=== PATIENT | male | born 1955 | race Caucasian/White ===

== ENCOUNTER 2025-03-12 09:47 | Outpatient (CLI) | payer MEDICARE, OTHER, SELFPAY ==
--- NOTE | 2025-03-12 10:01 | ECG_ITS ---
Test Date: 2025-03-12 10:17:12 Measurements Intervals [place] Rate: 58 P: 32 HI: 133 QRS: 15 QRSD: 110 T: 24 QT: 404 QTc: 398 Interpretive Statements SINUS BRADYCARDIA DELAYED PRECORDIAL R/S TRANSITION LEFT VENTRICULAR HYPERTROPHY BASELINE ARTIFACT- I, II, III, AVR, AVL ABNORMAL ECG CONSIDER INFERIOR INFARCT, AGE INDETERMINATE No previous ECG available for comparison Electronically Signed On 03-12-2025 10:43:38 WADER BOOT TOP ASSEMBLER by Andrew Bashir D.O.
[2025-03-12 10:26] LABS: Hematocrit 41.6 % (42.0-52.0); Hemoglobin 14.7 g/dL (14.0-18.0)
[2025-03-12 10:33] LABS: Add Urine Microscopic? YES; Appearance Urine Clear (Clear); Glucose Urine UA Negative (Negative); Leukocyte Esterase Ur Negative LEU/UL (Negative); Nitrate Urine Negative (Negative); Non Pathogenic Casts 0-2; Specific Grav Ur 1.020 (1.001-1.035)
[2025-03-12 10:38] LABS: INR 1.0; Prothrombin Time 13.6 Seconds (11.1-14.7)
[2025-03-12 10:39] LABS: Partial Thromboplastin Time 31.0 Seconds (22.3-36.8)
--- OUTSIDE RECORDS SUMMARY | 2025-03-12 10:47 | XMS_ITS | Clinical Summary ---
Author Organization [facility] Address [address] [place] [address] Care Team Providers Care Agency Cashier Name Role Phone Lindsay Guajardo MD Primary Care Provider [phone] Allergies Active Allergy Reactions Criticality Noted Date Comments Amoxicillin Cephalexin Hydrocodone Swollen tongue,Nausea only,Rash Reaction: Tongue swelling, nausea, rash, Hydrocodone-Acetaminoph en Penicillins Unknown 05/18/2016 Medications aspirin (ASPIRIN LOW DOSE) 81 mg tablet 81 mg. 0 2 Active multivitamin tablet tablet 0 2 Active simvastatin (ZOCOR) 20 mg tablet TAKE 1 TABLET DAILY 90 tablet 3 8 Active acetaminophen (TYLENOL) 500 mg tablet Active fluocinolone (DERMA-SMOOTH/FS ) 0.01 % oil APPLY TO SCALP AND LEAVE ON OVERNIGHT. RINSE IF DESIRED. FOR FIRST TIME, USE IN AM. 7 Active loratadine (CLARITIN) 10 mg tablet Active diphenhydrAMINE (BENADRYL) 50 mg capsule Active mupirocin (BACTROBAN) 2 % creamIndications :Abscess Apply topically 2 (two) times a day. 30 g 3 8 Active clobetasoL (TEMOVATE) 0.05 % ointmentIndicati ons:Cutaneous T-cell lymphoma, unspecified body region (HCC) APPLY TOPICALLY TO AFFECTED AREAS ON BODY TWO TIMES DAILY NEEDED 45 g 11 0 Active metoprolol XL (TOPROL-XL) 50 mg extended release tablet Take 50 mg by mouth daily 1 Active UNABLE TO FIND 9 Active OMEGA-3 FATTY ACIDS-FISH OIL ORAL Take 4,000 mg by mouth daily Active UNABLE TO FIND 9 Active clotrimazole-bet amethasone (LOTRISONE) lotionIndication s:Cutaneous T-cell lymphoma, unspecified body region (HCC) Apply topically 2 (two) times a day As needed to rash. Do not use on face 30 mL 11 2 Active hydrocortisone 2.5 % ointment Apply topically 2 (two) times a day 30 g 11 3 Active sulfamethoxazole -trimethoprim (BACTRIM DS) 800-160 mg per tabletIndication s:Abscess Take 1 tablet by mouth 2 (two) times a day 20 tablet 1 3 Active levothyroxine (SYNTHROID) 175 mcg tablet TAKE 1 TABLET BY MOUTH SUPERVISOR INCISING BEFORE BREAKFAST 30 tablet 11 4 Active prednisoLONE acetate (PRED FORTE) 1 % ophthalmic suspension Administer 1 drop into the right eye 3 (three) times a day 4 Active ketorolac (ACULAR) 0.5 % ophthalmic solution Administer 1 drop into the left eye 3 (three) times a day 4 Active ofloxacin (OCUFLOX) 0.3 % ophthalmic solution Administer 1 drop into the left eye 3 (three) times a day 4 Active triamcinolone (KENALOG) 0.1 % creamIndications :Cutaneous T-cell lymphoma, unspecified body region (HCC) Apply topically 2 (two) times a day as needed for rash 454 g 5 4 Active fenofibrate (TRICOR) 54 mg tabletIndication s:Cutaneous T-cell lymphoma, unspecified body region (HCC) TAKE 1 TABLET(54 MG) BY MOUTH DAILY 90 tablet 3 5 Active levothyroxine (SYNTHROID) 175 mcg tablet TAKE 1 TABLET BY MOUTH SUPERVISOR INCISING BEFORE BREAKFAST 30 tablet 11 5 Active levothyroxine (SYNTHROID) 175 mcg tablet TAKE 1 TABLET BY MOUTH SUPERVISOR INCISING BEFORE BREAKFAST 30 tablet 11 5 Active triamcinolone (KENALOG) 0.1 % ointment Apply twice daily to affected areas 465 g 3 5 Active clobetasoL (TEMOVATE) 0.05 % creamIndications :Cutaneous T-cell lymphoma, unspecified body region (HCC) Apply topically 2 (two) times a day as needed (for rash. Do not apply on the face, underarms, or groin.) 60 g 11 5 Active bexarotene (TARGRETIN) 75 mg capsuleIndicatio ns:Cutaneous T-cell lymphoma, unspecified body region (HCC) TAKE THREE CAPSULES BY MOUTH EVERY DAY 90 capsule 2 5 Active Active Problems Problem Noted Date Diagnosed Date Multiple-type hyperlipidemia 08/23/2013 Overview (07/15/2016): MIXED HYPERLIPIDEMIA Sebaceous cyst 08/25/2011 Overview (07/14/2016): Sebaceous cyst Hyperlipidemia 08/25/2011 Overview (07/14/2016): Hyperlipidemia Immunizations Immunization Administration Dates Next Due Tdap 09/25/2008 Surgical History Surgery Date Site/Laterality Comments OTHER SURGICAL HISTORY 01-- urologist: Dr. Nobles OTHER SURGICAL HISTORY I&D of infected sebaceous cyst Medical History Medical History Date Comments Hx Other Medical 01-- urologist Hyperlipidemia Hyperlipidemia Eye exam, routine 12/18/2016 Family History Medical History Relation Name Comments Heart disease Father heart disease; Depression Mother Depression; Heart disease Mother heart disease; Relation Name Status Comments Father Mother Social History Tobacco Use Types Packs/Day Years Used Date Smoking Tobacco: Never Alcohol Use Standard Drinks/Week Comments Yes 0 (1 standard drink = 0.6 oz pur e alcohol) Sex and Gender Information Value Date Recorded Sex Assigned at Not on file 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 Gender Identity Not on file Sexual Orientation Not on file Last Filed Vital Signs Vital Sign Reading Time Taken Comments Blood Pressure 103/59 10/17/2019 2:24 PM CDT Pulse 70 10/17/2019 2:24 PM CDT Temperature 36.2 C (97.2 F) 10/17/2019 2:24 PM CDT Respiratory Rate 16 10/17/2019 2:24 PM CDT Oxygen Saturation 97% 10/17/2019 2:24 PM CDT Inhaled Oxygen Concentration - - Weight 81.2 kg (179 lb) 10/17/2019 2:24 PM CDT Height 162.6 cm (5' 4) 10/17/2019 2:24 PM CDT Body Mass Index 30.73 10/17/2019 2:24 PM CDT Plan of Treatment Health Maintenance Due Date Last Done Comments Depression Screening 1955 Fall Risk Assessment 1955 Hepatitis C Screening 1955 Hepatitis B Screening 1974 Pneumococcal vaccine 65+ (1 of 2 - PCV) 1975 DTaP/Tdap/Td Vaccine (2 - Td or Tdap) 09/25/2018 09/25/2008 Colon Cancer Screening-Colonoscopy 11/27/2018 11/27/2008 Well Visit 65+ 2021 Prostate Cancer Screening-PSA 08/09/2022 08/09/2020 Covid-19 Vaccine (4 - 2024-2 6 season) 2024 02/26/2021, 07/03/2020, 06/10/2020 Influenza Vaccine (#1) 2024 4, 02/19/2023, 02/02/2021, Additional history exists Colon Cancer Screening-CT Colonography Discontinued 11/27/2008 Colon Cancer Screening-DNA Stool Discontinued 11/28/19 Colon Cancer Screening-FIT Discontinued 11/27/2008 Colon Cancer Screening-Sigmoidoscopy Discontinued 11/27/2008 Zoster Vaccine Completed 01/04/2023, 10/25/2022 Procedures Procedure Name Priority Date/Time Associated Diagnosis Comments PSA SCREEN Routine 08/09/2020 11:11 AM CDT Therapeutic drug monitoring COLONOSCOPY Routine 11/27/2008 from Last 3 Months or Most Recently Relevant to Health Maintenance Results * PSA screen (08/09/2020 11:11 AM CDT) PSA-Total 0.88 <=5.40 ng/mL [facility] Comment: Interpretive Data AGE SEX REFERENCE INTERVAL 0 minutes-150 years Female None 0 minutes-49 years Male None 50-59 years Male 0-3.90 60-69 years Male 0-5.40 70-79 years Male 0-6.20 80-150 years Male 0-6.20 Current interpretive data last revised 2017. Blood specimen (specimen) 08/09/2020 11:11 AM CDT 08/09/2020 11:54 AM CDT Sun Bee MD LAB BLOOD ORDERABLES Final Resu lt [facility] [place] [address] * COLONOSCOPY (11/27/2008) Colonoscopy Normal Historical Provider HEALTH MAINTENANCE Final Result from Last 3 Months or Most Recently Relevant to [place] [address] [facility] PPO [facility] CHOICE PLUS [facility] H[facility]PPO Address: [address] [address] [place] [address] [facility] MEDICARE MEDICARE [facility] MEDICARE [facility] [place] MEDICARE [facility] Care Teams Agency Cashier Relationship Specialty Start Date End Date Lindsay Guajardo MD PCP - General Internal Medicine 01/10/18
--- OUTSIDE RECORDS SUMMARY | 2025-03-12 10:47 | XMS_ITS | Encounter Summary ---
Author Organization [facility] Address [address] [place] [address] Phone Care Team Providers Care Survey Research Analyst Name Role Phone Sincere Guajardo MD Primary Care Provider [phone] Encounter Details Date Type Department Care Team (Late st Contact Info) Description 11/29/2019 Orders Only [facility] Scanning, Provider Social History Tobacco Use Types Packs/Day Years Used Date Smoking Tobacco: Never Alcohol Use Standard Drinks/Week Comments Yes 0 (1 standard drink = 0.6 oz pur e alcohol) Sex and Gender Information Value Date Recorded Sex Assigned at Not on file 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 Gender Identity Not on file Sexual Orientation Not on file documented as of this encounter Plan of Treatment Not on file documented as of this encounter Procedures Procedure Name Priority Date/Time Associated Diagnosis Comments SCAN - LABS 11/29/2019 documented in this encounter Results * SCAN - LABS (11/29/2019) us Provider Scanning Final Result documented in this encounter Visit Diagnoses Not on filedocumented in this encounter Additional Health Concerns Infection Onset Date Last Indicated Resolved Time MRSA 11/02/2017 11/02/2017 11/24/2020 5:00 AM CDT documented as of this encounter Care Teams Survey Research Analyst Relationship Specialty Start Date End Date Sincere Guajardo MD PCP - General Internal Medicine 01/10/18 documented as of this encounter
--- OUTSIDE RECORDS SUMMARY | 2025-03-12 10:47 | XMS_ITS | Encounter Summary ---
Author Organization [facility] Address [address] [place] [address] Phone Care Team Providers Care Brand Recorder Name Role Phone Sincere Guajardo MD Primary Care Provider [phone] Encounter Details Date Type Department Care Team (Late st Contact Info) Description 07/06/2018 Orders Only [facility] Scanning, Provider Social History Tobacco Use Types Packs/Day Years Used Date Smoking Tobacco: Never Alcohol Use Standard Drinks/Week Comments Yes 0 (1 standard drink = 0.6 oz pur e alcohol) Sex and Gender Information Value Date Recorded Sex Assigned at Not on file 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 Gender Identity Not on file Sexual Orientation Not on file documented as of this encounter Plan of Treatment Not on file documented as of this encounter Procedures Procedure Name Priority Date/Time Associated Diagnosis Comments SCAN - LABS 07/06/2018 documented in this encounter Results * SCAN - LABS (07/06/2018) us Provider Scanning Final Result documented in this encounter Visit Diagnoses Not on filedocumented in this encounter Additional Health Concerns Infection Onset Date Last Indicated Resolved Time MRSA 11/02/2017 11/02/2017 11/24/2020 5:00 AM CDT documented as of this encounter Care Teams Brand Recorder Relationship Specialty Start Date End Date Sincere Guajardo MD PCP - General Internal Medicine 01/10/18 documented as of this encounter
== END 2025-03-12 09:48 | disposition home or self-care (01) ==
LOC: ANHSURGERY 09:53
PROVIDERS: Anesthesiology; PCP Internal Medicine; Visit Provider Urology
DX: E78.5 Hyperlipidemia, unspecified (principal); I10 Essential (primary) hypertension; N20.1 Calculus of ureter; C84.A0 Cutaneous T-cell lymphoma, unspecified, unspecified site; Z01.818 Encounter for other preprocedural examination
CPT/HCPCS: 36415; 81001; 85014; 85018; 85610; 85730; 93005

== ENCOUNTER 2025-03-13 01:33 | Day surgery (SDC) | payer MEDICARE, OTHER, SELFPAY ==
[2025-03-11 15:19] VITALS: BMI 26.1
--- NOTE | 2025-03-11 15:35 | PC.NURSE ---
[facility] has started construction of its new state of the art ER which will open Spring 2026. With this, we anticipate parking may be a challenge for some our surgical patients and families. Parking spaces are limited but are available for all Surgical, obstetrics, and ER patients sharing this lot. If you arrive and find you are having a hard time finding a parking space, please note that we understand the challenges, please drive around the hospital and park near Hospital Entrance 1. When you enter this entrance, you can ask a volunteer to direct or take you back to the surgical waiting area to check in. We appreciate everyone?s understanding of these expected challenges while we build for your future. Report to the Outpatient Waiting Room, entrance under the green pavilion located off [address], at time __12:00pm on date _03/13/25 . Planned Procedure Time: __2:00pm .? Time changes happen often and if your time is changed the preop area will call you the afternoon before. - You and your visitor will be asked to self-screen and do not enter if you have any COVID symptoms. Please call surgeon if you need to reschedule. - A mask is optional within the hospital at this time. Patients may have clear liquids (water, carbonated beverages, clear teas, apple juice) until 3 hours prior to surgery with a maximum of 20 ounces. - No food from midnight until time of surgery and no smoking, or chewing tobacco (or any form of nicotine). No chewing gum, candy or mints. Take only the following medications with a SIP of water on the morning of surgery: ___Levothyroxine, Tylenol if needed DO NOT STOP ANY OF YOUR OTHER PRESCRIPTION MEDICATIONS PRIOR TO SURGERY EXCEPT THE FOLLOWING Hold all vitamins, FISH OIL, other supplements, Aspirin/NO MOTRIN this week per Dr Myrick. Date to take last dose___03/08/25 Please no make-up, nail nepali, hairspray, perfume, deodorant, or body powder the day of surgery.? No jewelry (including any body piercings) or valuables the day of surgery, leave them at home.? Please take a shower or bath the night before, or the morning of, surgery with an antibacterial soap.? Wear comfortable, loose fitting clothing.? - Jewelry must be removed prior to entering the operating room.? Rings and piercings that are not removed may be cut off. - The hospital will not accept responsibility for valuables.? - Please leave all valuables, including medications, at home the day of surgery. If you are going home after surgery, a licensed [place] driver must drive you home.? - NO public transportation without another adult if you receive anesthesia. - We recommend that an adult stay with you for 24 hours following discharge. - We also recommend that you do not drive, make important decision, drink alcoholic beverages, or take any drugs that were not prescribed by your health care provider for at least 24 hours after your discharge time. Follow any additional instructions given to you from your surgeon. Telephone instructions given to _Patient & EMILIO and asked if any additional questions and then verbalized understanding. Patient advised to call surgeon office or pre surgery nurse liaison [phone] if any additional questions.
[2025-03-13] VITALS (8 sets, daily range): BP systolic 143–183; BP diastolic 66–88; PULSE 57–68; RESP 10–16; TEMP 36.5; O2SAT 98–100; BMI 25.7
--- NOTE | ~2025-03-13 | XR_ITS ---
XR abdomen/kub 1V 03/13/2025 11:56 Indication: Preop ESWL Procedure: KUB Comparison: No prior studies for comparison. Findings: Bowel gas pattern nonobstructive. There are bilateral renal stones. Moderate colonic fecal loading. There is a right pelvic phlebolith. Severe lumbar spondylosis. There is osteoarthritis of the hips. No acute osseous abnormality. Impression: 1: Bilateral nephrolithiasis. Reviewed, dictated and finalized at location I. NG CLERK Impression: 1: Bilateral nephrolithiasis.
--- NOTE | 2025-03-13 06:24 | WPDHPUPDATE1 ---
History and Physical Update Update Date/Time: 03/13/25 06:24 History and Physical has been reviewed, including an updated exam of the patient. There are NO changes in the patient's condition. Risks, benefits, and alternatives have been discussed and questions answered. Patient agrees to proceed with procedure.
[2025-03-13] MEDS: LACTATED RINGERS 1,000 ML 30 ML IV CONT ×2 (11:46→15:01)
--- NOTE | 2025-03-13 14:11 | WPDANESEPPF ---
Anes - Initial Pre Proc Eval Procedure: Operation Date: 03/13/25 14:00 Proposed Procedures p Right Extracorporeal Shock Wave Lithotripsy - Caio Myrick MD Date/Time: 03/13/25 14:11 Surgeon: Caio Myrick MD Pre Op Diagnosis: right ureteral stone Patient Data Age: 69 Gender: M Height: 1.63 m Weight: 68 kg Last Vital Signs Temp 36.5 C 03/13/25 12:05 Pulse 64 03/13/25 12:05 Resp 16 03/13/25 12:05 BP 148/72 H 03/13/25 12:05 Pulse Ox 100 03/13/25 12:05 O2 Del Method Room Air 03/13/25 12:05 Allergies Allergy/AdvReac Type Severity Reaction Status Date / Time hydrocodone Allergy Severe Anaphylactic Verified 03/13/25 13:47 Shock Penicillins Allergy Unknown Swelling Verified 03/13/25 13:47 Home Medications ?Medication ?Instructions ?Recorded ?Confirmed ?Type aspirin 81 mg tablet,delayed 81 mg PO DAILY 03/11/25 03/13/25 History release (Adult Aspirin Regimen) bexarotene 75 mg capsule 225 mg PO DAILY 03/11/25 03/11/25 History clobetasol 0.05 % topical cream 1 applic topical DAILY 03/11/25 03/11/25 History fenofibrate 54 mg tablet 54 mg PO DAILY 03/11/25 03/11/25 History levothyroxine 175 mcg tablet 175 mcg PO DAILY 03/11/25 03/13/25 History metoprolol succinate 50 mg 50 mg PO .PM 03/11/25 03/11/25 History tablet,extended release 24 hr omega-3 fatty acids 1,400 mg PO BID 03/11/25 03/11/25 History Held on 03/11/25. Instructions: .Provider Order simvastatin 20 mg tablet 20 mg PO QPM 03/11/25 03/11/25 History tamsulosin 0.4 mg capsule 0.4 mg PO .PM 03/11/25 03/11/25 History Patient hx anesthesia problems: none Family hx anesthesia problems: none Results Review: All pre-operative results and documents have been reviewed as part of the pre-operative evaluation. PMFSH Social History Social History Smoking status: Never smoker Second hand tobacco smoke exposure: No Alcohol intake: never Substance use: never Living arrangements: with family Additional living arrangements comments: EMILIO Spiritual care concerns: No Anes - Eval Final PreProcedure Day of Procedure 03/13/25 14:11 Patient weight: normal Heart: regular rate and rhythm Lungs: clear to auscultation Airway: Mallampati scale class 1 Neurological: alert and oriented Last oral intake: >/= 8 hours ASA classification: III Emergent: no Anesthetic plan: proceed Anesthesia type and monitoring: general LMA and standard monitoring Results Review: All pre-operative results and documents have been reviewed as part of the pre-operative evaluation. Informed Consent: The patient's anesthetic plan and its attendant risks and benefits were discussed with the patient/family/POA. Questions were solicited and answers provided to the satisfaction of the patient/family/POA.
[2025-03-13] MEDS: ceFAZolin 2 GM in SODIUM CHLORIDE 0.9% IV 50 ML 100 ML IVPB (14:14)
--- NOTE | 2025-03-13 17:00 | SUR.PHASEII ---
1708 PATIENT ASKED RE: FLOMAX; DR. ORTEGA INSTRUCTED TO TAKE FOR 2 MORE DAYS. MESSAGE RELAYED TO PATIENT.
--- NOTE | 2025-03-27 06:34 | W.PM.PROC2 ---
Procedure Note - Detailed Date of Procedure 03/27/25 Pre-op Diagnosis Right ureteral stone Post-op Diagnosis Same Procedure Performed Right ESWL Surgeon Caio Myrick MD Anesthesia General Description of Procedure The patient was brought to the operative suite where he was placed in the supine position on the Dornier lithotripsy table. The focal point of the lithotripter was placed at a 6mm right distal calculus. A total of 3000 shocks were delivered at a power setting of 5. There appeared to be good fragmentation of the stone. The patient tolerated the procedure well and was taken to the recovery room in good condition. Drains No Packing Yes Pathology None sent
== END 2025-03-13 16:25 | disposition home or self-care (01) ==
PROVIDERS: PCP Internal Medicine; Visit Provider Urology
PROC: (CPT 50590; principal; 2025-03-13 14:00)
DX: N20.1 Calculus of ureter (principal); I10 Essential (primary) hypertension; E78.5 Hyperlipidemia, unspecified; J44.9 Chronic obstructive pulmonary disease, unspecified; R39.9 Unspecified symptoms and signs involving the genitourinary system; R82.90 Unspecified abnormal findings in urine; Z79.82 Long term (current) use of aspirin; Z98.890 Other specified postprocedural states
CPT/HCPCS: 50590; 74018; J0690; J1100; J1200; J2003; J2250; J2270; J2405; J2704; J7120